=== PATIENT | female | born 1935 | race Caucasian/White ===

== ENCOUNTER 2016-12-19 02:17 | Inpatient (IN) ==
[2016-12-19 03:15] LABS: MANUAL DIFF NEEDED? NO
[2016-12-19] MEDS ORDERED: HUMULIN R IV ONE (03:21)
[2016-12-19] MEDS ORDERED: NS 1,000 ML IV ONE (03:21)
[2016-12-19 03:49] LABS: EOS# 0.06 X1000 (0.0-0.7); EOS% 3.4 % (0.0-10.0); HEMATOCRIT 23.8 % (37.0-47.0); HEMOGLOBIN 7.6 g/dL (12.0-16.0); LYMPH# 0.37 X1000 (1.2-3.4); LYMPH% 20.7 % (20.5-51.1); MCH 26.4 PG (27-31); MCHC 31.9 g/dL (33-37); MCV 82.6 FL (81-99); MONO# 0.03 X1000 (0.11-0.59); MONO% 1.7 % (1.7-9.3); MPV 13.8 FL (7.4-10.4); NEUT% 74.2 % (42.2-75.2); PLT 65 X1000 (130-400); RBC 2.88 XMIL (4.2-5.4)
[2016-12-19 04:24] LABS: URINE CULTURE NEEDED? NO; URINE SOURCE CATH
[2016-12-19 04:27] LABS: BILIRUBIN URINE SMALL (NEGATIVE); BLOOD URINE NEGATIVE (NEGATIVE); COLOR YELLOW; GLUCOSE URINE >1000 mg/dL (NEGATIVE); LEUKOCYTES URINE NEGATIVE (NEGATIVE); NITRITE URINE NEGATIVE (NEGATIVE); PROTEIN URINE 100 mg/dL (NEGATIVE); SP GRAVITY URINE 1.022; TURBIDITY URINE HAZY (CLEAR); UROBILINOGEN URINE 4 mg/dL (NORMAL)
[2016-12-19 04:28] LABS: URINE MICRO REVIEW NEEDED? YES
[2016-12-19 04:47] LABS: ALBUMIN 2.8 g/dL (3.5-5.0); CALCIUM 8.3 mg/dL (8.8-10.2); POTASSIUM 4.1 mmol/L (3.5-5.1); TOTAL BILIRUBIN 0.87 mg/dL (0.20-1.00); TOTAL PROTEIN 5.6 g/dL (6.3-8.3)
[2016-12-19 04:49] LABS: UR EPITHELIAL CELLS <10 /HPF (<10); URINE BACTERIA NEGATIVE /HPF; URINE RBC <10 /HPF (<10); URINE WBC <10 /HPF (<10)
[2016-12-19 05:26] LABS: URINE CASTS GRANULAR PRESENT; URINE CRYSTALS NONE SEEN; URINE SMALL ROUND CELLS NONE SEEN
[2016-12-19] MEDS ORDERED: NS 500 ML IV ONE (05:28)
--- NOTE | 2016-12-19 05:48 | PROVIDER DOCUMENTATION ---
This chart was entered by Rustam Bernstein Scribe, acting as scribe for Eliseo Duke MD. HPI-General Adult - General Chief Complaint: Weakness Stated Complaint: WEAKNESS, UNABLE TO CONTROL BOWELS Time Seen by Provider: 12/19/16 02:52 Source: patient Allergies/Adverse Reactions: Patient Allergies Allergy/AdvReac Type Severity Reaction Status Date / Time No Known Allergies Allergy Verified 12/19/16 02:42 Home Medications: Home Medication List Medication Instructions Recorded Confirmed Last Taken Type Aspirin [Aspirin EC] 81 mg PO DAILY 11/29/16 12/19/16 12/18/16 History Carvedilol [Coreg] 12.5 mg PO BID 11/29/16 12/19/16 12/18/16 History Gabapentin 100 mg PO BID 11/29/16 12/19/16 12/18/16 History Insulin Detemir [Levemir] 15 units SQ DAILY 11/29/16 12/19/16 12/18/16 History Losartan Potassium [Cozaar] 25 mg PO DAILY 11/29/16 12/19/16 12/18/16 History Omeprazole [Prilosec] 40 mg PO DAILY #30 capsule. 12/05/16 12/19/16 12/18/16 Rx Ondansetron HCl [Zofran] 4 mg PO 3-4XDAY PRN PRN #30 tablet 12/05/16 12/19/16 Rx Rivaroxaban [Xarelto] 20 mg PO BID #60 tablet 12/05/16 12/19/16 12/18/16 Rx Sennosides [Senna] 8.6 mg PO BID #60 tablet 12/05/16 12/19/16 12/18/16 Rx Dronabinol 1 cap PO DIRECTED 12/19/16 12/19/16 12/18/16 History Hydrocodone/APAP 7.5 mg/325 mg 1 tab PO Q4HR PRN 12/19/16 12/19/16 12/18/16 History [[place]-7.5] - History of Present Illness -Gen Adult Nature of Presenting Problems: Pt is a 81 yof who presents to ER via EMS with CC of generalized weakness. Pt was diagnosed with pancreatic cancer 1 month ago and recently finished her 3rd round of chemo and has become too weak to walk. Location of Pain/Injury: reports: none Pain Radiation: reports: no radiation Quality of Pain: reports: none Severity: reports: mild Onset/Duration: reports: unsure, just prior to arrival Timing: reports: still present Associated Symptoms: reports: fatigue, muscle aches, weakness, trouble walking. denies: anxiety, arm pain, back/neck pain, chest pain, constipation, cough, diaphoresis, diarrhea, dizziness, EENT symptoms, fever/chills, genitourinary problems, headaches, heartburn, joint pain, loss of appetite, malaise, sinus congestion/drainage, nausea, rash, seizure, shortness of breath, sensory/motor loss, pain with inspiration, swelling/mass in abdomen, syncope, vomiting Similar Symptoms Previously?: Yes Recently seen or treated by another doctor?: Yes Review of Systems - Adult - REVIEW OF SYSTEMS - ADULT Constitutional: reports: fatique, other (generalized weakness). denies: chills , fever, night sweats, weight gain, weight loss Eyes: reports: no symptoms reported Ears, Nose, Mouth & Throat: reports: no symptoms reported Cardiovascular: denies: chest pain, edema, heart murmur, irregular heart rate, orthopnea, palpitations, poor circulation, PND, syncope Respiratory: denies: chronic cough, cough, dyspnea on exertion, excessive sputum production, hemoptysis, pleurisy, shortness of breath, wheezing Gastrointestinal: reports: no symptoms reported Genitourinary: reports: no symptoms reported Musculoskeletal: reports: no symptoms reported Integumentary: reports: no symptoms reported Neurological: denies: ataxia, dizziness/vertigo, headache/migraines, loss of balance, numbness, paresthesia, seizure, slurred speech, syncope, tremors Psychiatric: reports: no symptoms reported Endocrine: reports: no symptoms reported Hematologic/Lymphatic: reports: no symptoms reported Allergic/Immunologic: reports: no symptoms reported All Other Systems: Reviewed and Negative Past History - Adult - PAST MEDICAL HISTORY-ADULT Review of Records: reports: Nursing Assessment Review, Medications Reviewed - IMMUNIZATION STATUS Childhood Immunizations: See Nurse Assessment Flu Vaccine: See Nurse Assessment Physical Exam-General - PHYSICAL EXAM-ADULT Initial Vital Signs Reviewed: Yes - CONSTITUTIONAL General Appearance: appears well, alert, mild distress, lethargic, slow to respond. negative: no apparent distress - HEAD, EARS, NOSE, MOUTH & THROAT HENMT: normocephalic/atraumatic, moist mucous membranes, normal ENT inspection, TMs normal, pharynx normal. negative: angioedema, dental decay, hearing deficit , pharyngeal erythema, tonsillar exudate, TM abnormal, TM obscurred by cerumen, frontal tenderness, maxillary tenderness - NECK Neck: non-tender, full range of motion, supple, normal inspection. negative: Brudzinski's sign, carotid bruit, C-spine tenderness, limited range of motion, lymphadenopathy, meningismus, trachial deviation, tender lateral, tender midline , thyromegaly - RESPIRATORY Respiratory: chest non-tender, lungs clear, normal breath sounds, no pleuratic chest pain, no respiratory distress, no accessory muscle use. negative: respiratory distress, decreased breath sounds, accessory muscle use, wheezing - CARDIOVASCULAR Cardiovascular: normal peripheral pulses, regular rate, rhythm. negative: bradycardia, tachycardia, irregularly irregular - GASTROINTESTINAL (ABDOMEN) Abdominal Exam: normal bowel sounds, non tender, soft, no organomegaly, no pulsatile mass. negative: abnormal bowel sounds, distended, guarding, tenderness - MUSCULOSKELETAL Back Exam: normal inspection, no CVA tenderness, no vertebral tenderness. negative: CVA tenderness, decreased range of motion, ecchymosis, muscle spasm, swelling, vertebral tenderness Extremity: normal range of motion, non-tender, normal gait, normal inspection, no pedal edema, no calf tenderness, normal capillary refill. negative: deformity, erythema, inflammation, swelling, tenderness - SKIN Integumentary: normal color, normal turgor, warm/dry. negative: abrasion(s), ecchymosis, erythema, swelling, tenderness, warm - NEUROLOGIC Neurologic: paraoptometric II-XII nml as tested, grossly normal, no motor/sensory deficits . negative: facial droop, focal weakness, motor weakness, sensory deficit - PSYCHIATRIC Psych/Mental Status: normal thought content, normal thought process, oriented x 3, depressed affect. negative: normal mood/affect Progress - PLAN OF CARE/RESULTS Progress/Plan/Lab Results: Vital Signs - 8 hr 12/19/16 02:24 Temperature 97.8 F Pulse Rate 79 Respiratory Rate 20 Blood Pressure 115/57 O2 Sat by Pulse Oximetry 94 L Orders Category Date Time Status CBC WITH ELECTRONIC DIFF [HEME] Stat Lab 12/19/16 02:53 Uncollected EKG [EKG] Stat Ther 12/19/16 02:17 Ordered Laboratory Tests 12/19/16 12/19/16 12/19/16 02:51 03:00 03:00 WBC 1.79 L RBC 2.88 L Hgb 7.6 L Hct 23.8 L MCV 82.6 MCH 26.4 L MCHC 31.9 L RDW Std Deviation 14.5 Plt Count 65 L MPV 13.8 H Immature Gran % (Auto) 0.0 Neut % (Auto) 74.2 Lymph % (Auto) 20.7 Cassia % (Auto) 1.7 Eos % (Auto) 3.4 Baso % (Auto) 0.0 Immature Gran # (Auto) 0.00 Neut # (Auto) 1.33 L Lymph # (Auto) 0.37 L Cassia # (Auto) 0.03 L Eos # (Auto) 0.06 Baso # (Auto) 0.00 Sodium 127 L Potassium 4.1 Chloride 92 L Carbon Dioxide 22 L Anion Gap 13 BUN 30 H Creatinine 1.3 H Estimated GFR/1.73 m2 40 BUN/Creatinine Ratio 23 Glucose 327 H POC Glucose 358 H D Calculated Osmolality 274 Calcium 8.3 L Total Bilirubin 0.87 AST 47 H Alkaline Phosphatase 239 H Total Protein 5.6 L Albumin 2.8 L Globulin 2.8 Albumin/Globulin Ratio 1.0 Amylase 29 Lipase 26 Urine Source Urine Color Urine Turbidity Urine pH Ur Specific [place] Urine Protein Ur Glucose (Stick) Ur Ketones (Stick) Urine Blood Urine Nitrite Urine Bilirubin Urobilinogen Dipstick Urine Leukocytes Urine WBC (Auto) Urine RBC (Auto) U Epithel Cells (Auto) Urine Bacteria (Auto) Urine Crystals Small Round Cells Urine Casts Urine Yeast-like Cells 12/19/16 03:10 WBC RBC Hgb Hct MCV MCH MCHC RDW Std Deviation Plt Count MPV Immature Gran % (Auto) Neut % (Auto) Lymph % (Auto) Cassia % (Auto) Eos % (Auto) Baso % (Auto) Immature Gran # (Auto) Neut # (Auto) Lymph # (Auto) Cassia # (Auto) Eos # (Auto) Baso # (Auto) Sodium Potassium Chloride Carbon Dioxide Anion Gap BUN Creatinine Estimated GFR/1.73 m2 BUN/Creatinine Ratio Glucose POC Glucose Calculated Osmolality Calcium Total Bilirubin AST Alkaline Phosphatase Total Protein Albumin Globulin Albumin/Globulin Ratio Amylase Lipase Urine Source CATH Urine Color YELLOW Urine Turbidity HAZY Urine pH 6.0 Ur Specific [place] 1.022 Urine Protein 100 A Ur Glucose (Stick) >1000 A Ur Ketones (Stick) NEGATIVE Urine Blood NEGATIVE Urine Nitrite NEGATIVE Urine Bilirubin SMALL A Urobilinogen Dipstick 4 A Urine Leukocytes NEGATIVE Urine WBC (Auto) <10 Urine RBC (Auto) <10 U Epithel Cells (Auto) <10 Urine Bacteria (Auto) NEGATIVE Urine Crystals NONE SEEN Small Round Cells NONE SEEN Urine Casts GRANULAR PRESENT Urine Yeast-like Cells NONE SEEN Result Diagrams: 12/19/16 03:00 12/19/16 03:00 Departure - Departure Time of Disposition Decision: 02:57 DIAGNOSIS: Pancreatic cancer Qualifiers: Pancreatic malignancy location: body of pancreas Qualified Code(s): C25.1 - Malignant neoplasm of body of pancreas Gastrointestinal bleed Qualifiers: GI bleed type/associated pathology: unspecified gastrointestinal hemorrhage type Qualified Code(s): K92.2 - Gastrointestinal hemorrhage, unspecified Disposition: ADMITTED INPATIENT 09 Certified Medical Emergency: Emergent Condition: Stable Additional Freetext Instructions: ED Follow Up Instructions: You have been treated by a care provider in the Emergency Department. These instructions are being provided to you so you can have an understanding of how to care for yourself upon discharge. Upon discharge from the Emergency Department, you are responsible for making arrangements for follow-up care by a physician of your choice. Take all prescribed medications as directed. Return to the Emergency Department immediately for any new or worsening symptoms. You may call the Physician Referral phone number at [phone] to obtain a list of Physicians who are taking new patients. This chart was documented by the indicated scribe, (Rustam Bernstein Scribe) and accurately reflects the services I performed and decisions made by me, Eliseo Duke MD, as attested by the provider's signature.
--- NOTE | 2016-12-19 06:01 | EKG Report ---
Test Performed on : 12/19/2016 02:27:39 AM Test Reason : weakness Blood Pressure : / mmHG Vent. Rate : 079 BPM Atrial Rate : 079 BPM P-R Int : 118 ms QRS Dur : 138 ms QT Int : 472 ms P-R-T Axes : 000 -15 074 degrees QTc Int : 541 ms Atrial-sensed ventricular-paced rhythm Abnormal ECG When compared with ECG of 29-OCT-2007 15:39, Vent. rate has decreased BY 13 BPM Unconfirmed Result
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
--- NOTE | 2016-12-19 07:21 | Diag Imaging Result Document ---
PROCEDURE NAME: ABDOMEN/PELVIS W/O CONTRAST - 12/19/2016 CT ABDOMEN AND PELVIS WITHOUT ORAL OR INTRAVENOUS CONTRAST: COMPARISON: Compared to 11/29/2016. FINDINGS: There is a calcified granuloma in the right lower lobe and calcified right hilar lymph nodes. There are many scattered hypodense hepatic lesions similar to the prior exam. The gallbladder has been removed. The spleen is not enlarged. There are scattered hepatic and splenic granuloma. Mild inflammation about the pancreas. No mass identified on this noncontrasted exam. No renal stones. No hydronephrosis. Moderate atherosclerosis. No bowel obstruction. No inflammation about the cecum. There is wall thickening about the distal descending and sigmoid colon. The urinary bladder is moderately distended. The uterus has been removed. No pelvic mass. No free fluid. IMPRESSION: 1. Interval development of colitis involving the descending and sigmoid colon. 2. Hepatic metastases. 3. Mild inflammation about the pancreas. 4. Cholecystectomy. 5. Hysterectomy. [facility]
[2016-12-19] MEDS ORDERED: ZOFRAN IV PRN (07:22)
--- NOTE | 2016-12-19 08:14 | Diag Imaging Result Document ---
PROCEDURE NAME: ABDOMEN FLAT/UPRIGHT - 12/19/2016 PORTABLE ABDOMEN, TWO VIEWS: FINDINGS: The lung bases are clear. No free air beneath the diaphragm. There are surgical clips in the right upper quadrant from a cholecystectomy. There has been prior surgery to the lower lumbar spine. No bowel obstruction. IMPRESSION: No definite acute abnormality except for mild constipation.
[2016-12-19] MEDS ORDERED: XARELTO PO SCH (09:00)
[2016-12-19] MEDS ORDERED: PRILOSEC PO SCH (09:00)
[2016-12-19] MEDS: SENOKOT PO SCH ×3 (09:25→20:46)
[2016-12-19] MEDS: SODIUM CHLORIDE 0.9% INJ SCH (09:25)
[2016-12-19] MEDS: PROTONIX IV SCH (09:25)
[2016-12-19] MEDS: NEURONTIN PO SCH ×2 (09:25→20:46)
[2016-12-19] MEDS: FLAGYL 500 MG/NS 500 MG/100 ML IVPB IV SCH ×2 (09:26→17:01)
[2016-12-19] MEDS: HUMALOG SUBQ SCH ×4 (09:26→20:45)
[2016-12-19] MEDS: NS 1,000 ML IV SCH ×2 (09:26→18:46)
[2016-12-19] MEDS: MARINOL PO SCH ×3 (11:52→20:46)
--- NOTE | 2016-12-19 19:26 | PROGRESS NOTE ---
DATE: 12/20/2016 SUBJECTIVE: Interval history was reviewed. Ever since patient discharged from the previous admission, the patient has been under the care of Dr. Mcgowan. The patient had chemotherapy x2. Apparently came in with explosive diarrhea, fatigue, weakness, abdominal pain. Past medical history, surgical history, medicines were reviewed. REVIEW OF SYSTEMS: HEENT: No headache. No vision problem. No earache. No sore throat. Neck: No goiter. No lymphadenopathy. No bruit. Cardiopulmonary: No chest pain, shortness of breath, PND, orthopnea. GI: Lower abdominal pain, diarrhea and slight upper abdominal discomfort. No swelling of legs. No joint pain. Neurologic: No obvious weakness. PHYSICAL EXAMINATION: Vital Signs: Afebrile, pulse is 86, blood pressure is 103/45. 95% room air. HEENT: Atraumatic, normocephalic. Pupils equal, reactive to light. TMs are normal. Nose and throat within normal limits. Neck: Supple. No lymphadenopathy. No goiter. Chest: Clear to auscultation. Heart: Sounds are regular. Abdomen: Belly is soft. No signs of peritonitis noted. Extremities: No peripheral edema, cyanosis. No obvious neurological deficits. INVESTIGATIONS: White cell count 1.7, hematocrit 23, platelets 65,000. SMA7: Sodium 127, potassium 4.1, BUN 30, creatinine 1.3, glucose 327, elevated LFTs. Urinalysis is clear. CT scan of the abdomen and pelvis: Findings discussed interval development of colitis of the descending and sigmoid colon. Mild inflammation over the pancreas. Cholecystectomy, hysterectomy, hepatic metastasis worsening. ASSESSMENT AND PLAN: 1. Pancytopenia due to recent chemotherapy. 2. Hematological support for anemia, transfusion of 2 units of packed red blood cells. 3. Leukopenia. Follow up on ANC. Discussed with Dr. Mcgowan. 4. Deep venous thrombosis with pulmonary embolism. Continue on Xarelto 20 mg daily. 5. Diarrhea with colitis. Rule out C. difficile. Follow up on stool studies. Empirical treatment with IV Flagyl. 6. Dehydration. IV fluids. 7. Stage IV pancreatic cancer with hepatic metastases, continue on hydromorphone. 8. Status post Port-A-Cath for IV access. 9. Discussed with Dr. Mcogwan. TOTAL DOCUMENTATION TIME: 35 minutes. cc: Gregory Waite MD
[2016-12-19] MEDS ORDERED: AMBIEN PO PRN (19:37)
[2016-12-20] MEDS: NS 1,000 ML IV SCH ×2 (02:01→14:04)
[2016-12-20] MEDS: FLAGYL 500 MG/NS 500 MG/100 ML IVPB IV SCH ×3 (02:01→16:47)
[2016-12-20] MEDS: PERCOCET-5 PO PRN ×3 (05:00→19:06)
[2016-12-20] MEDS: HUMALOG SUBQ SCH ×4 (07:02→20:53)
[2016-12-20 07:42] LABS: EOS# 0.05 X1000 (0.0-0.7); EOS% 4.9 % (0.0-10.0); HEMATOCRIT 26.8 % (37.0-47.0); HEMOGLOBIN 8.7 g/dL (12.0-16.0); LYMPH# 0.38 X1000 (1.2-3.4); LYMPH% 37.3 % (20.5-51.1); MCHC 32.5 g/dL (33-37); MCV 83.2 FL (81-99); MONO# 0.02 X1000 (0.11-0.59); MPV 13.2 FL (7.4-10.4); NEUT% 54.8 % (42.2-75.2); PLT 45 X1000 (130-400); RBC 3.22 XMIL (4.2-5.4)
[2016-12-20 07:43] LABS: POTASSIUM 3.6 mmol/L (3.5-5.1)
[2016-12-20 08:06] LABS: MANUAL DIFF NEEDED? YES
[2016-12-20 08:10] LABS: EOS 4 % (1-10); LYMPHS 30 % (21-51); MONO 2 % (1-9)
--- NOTE | 2016-12-20 08:32 | CONSULTATION ---
DATE OF CONSULTATION: 12/19/2016 ADMITTING PHYSICIAN: Dr. Peralta. REQUESTING PHYSICIAN: Dr. Peralta. We appreciate this consult. CHIEF COMPLAINT: Weakness. HISTORY OF PRESENT ILLNESS: Ms. Ge is a 81-year-old female known to us with a history of stage IV pancreatic cancer, who was brought to [facility] Emergency Department secondary to generalized weakness. The patient reports that while going to the bathroom she felt that both lower extremities were extremely weak so she lowered herself to the ground. Her reported that he could not help her up and decided to call EMS. The patient did report that prior to this episode she had some significant constipation and took a medication that was given to her at discharge from the hospital. She reports that she had improvement of symptoms after that time but did have abdominal pain. Additionally, the patient reports that she has significant pain that is not controlled by her current pain regimen. PAST MEDICAL HISTORY: 1. Stage IV pancreatic cancer. 2. Cervical spondylosis. 3. Chronic systolic heart failure. 4. Uncontrolled diabetes mellitus type 2. 5. Hyperlipidemia. 6. Osteoporosis. 7. Left bundle branch block. PAST SURGICAL HISTORY: 1. Port placement this month. 2. Permanent pacemaker placement. 3. Cholecystectomy. 4. C-spine fusion. 5. Hysterectomy. 6. Back surgery. FAMILY HISTORY: Negative for any hematologic or oncologic problem. SOCIAL HISTORY: The patient does not use tobacco, alcohol, or illicit drugs. ALLERGIES: The patient is allergic to Glucophage, Victoza, and Demerol. MEDICATIONS ON ADMISSION: Review of admission medications is currently pending. REVIEW OF SYSTEMS: A 14-point review of systems was obtained and is negative except for as mentioned in the HPI. PHYSICAL EXAMINATION: General: Ms. Ge is a very pleasant, 81-year-old female, well developed, well nourished. She is lying supine in bed. Somewhat weak but in no immediate distress. Vital Signs: Temperature 98.4 degrees, blood pressure 91/39, heart rate 79, respirations are 17, O2 saturation is 97% on room air. HEENT: Normocephalic, atraumatic. Mucous membranes are pale and moist. Sclerae anicteric. Extraocular movements intact. Neck: Supple. Lungs: Clear to auscultation bilaterally. Chest expansion is equal bilaterally. CV: S1, S2 is heard without murmur, rub, or gallop. Abdomen: Soft, nondistended. Minimally tender in the left upper quadrant. Bowel sounds are positive in all quadrants. No rebound or guarding noted. Extremities: Without clubbing, cyanosis, or edema. Dermatologic: No rashes, bruises or lesions. Neurologic: The patient is awake, alert, oriented x3. She has no focal deficit at this time. LABORATORY DATA: Bilirubin 0.87, AST 47, alkaline phosphatase 239, ALT is 40. Hemoglobin 7.6, hematocrit 23.8, white blood cell count 1.79, platelets 65,000. ANC is 1.33. Sodium 127, potassium 4.1, chloride 92, CO2 is 22, BUN 30, creatinine 1.3, glucose 327, calcium is 8.3, magnesium 2.4. Fecal occult blood test is positive. IMAGING STUDIES: CT of the abdomen and pelvis reveals colitis of the descending and sigmoid colon with hepatic metastasis, as well as pancreatic inflammation. Abdominal x-ray reveals mild constipation. ASSESSMENT AND PLAN: 1. Stage IV pancreatic cancer status post cycle 1, day 8 of Abraxane and Gemzar on 12/15/2016. Holding for now. Next dose is scheduled for December 22. 2. Generalized weakness which persists at this time. 3. Diabetes mellitus, uncontrolled with a glucose of 327. We agree with sliding scale insulin as ordered. 4. Anemia, likely chemotherapy related. We agree with transfusion of packed red blood cells. Will monitor CBC. 5. Acute kidney insufficiency. We agree with hydration. Creatinine is currently stable at 1.3. 6. Hyponatremia with sodium of 127. We agree with normal saline IV fluids. 7. Chronic systolic heart failure which is currently stable. 8. We will follow along with you and make further recommendations pending outcomes. The above reflects the history, exam, assessment, and plan of Dr. Mcgowan. Dictated by FARSHAD Zurita for Claudio Mcgowan MD cc: FARSHAD Zurita MD Jagan Reddy, MD
[2016-12-20] MEDS: SENOKOT PO SCH ×2 (09:39→20:53)
[2016-12-20] MEDS: NEURONTIN PO SCH ×2 (09:39→20:52)
[2016-12-20] MEDS: MARINOL PO SCH ×2 (09:39→20:52)
[2016-12-20] MEDS: XARELTO PO SCH (09:40)
[2016-12-20] MEDS: PROTONIX IV SCH (09:41)
[2016-12-20] MEDS: SODIUM CHLORIDE 0.9% INJ SCH (09:41)
[2016-12-20] MEDS: GRANIX SUBQ SCH (12:58)
--- NOTE | 2016-12-20 19:17 | PROGRESS NOTE ---
DATE: 12/20/2016 SUBJECTIVE: The patient was seen by Dr. Mcgowan and is status post 2 units of packed RBCs. The patient complains of pain. Also decreased diarrhea. REVIEW OF SYSTEMS: None reported. PHYSICAL EXAMINATION: Vital Signs: Stable. HEENT: Exam within normal limits. Neck: Supple. Port on the right side. Chest: Clear. Heart: Sounds are regular. Abdomen: Belly is soft, nontender. Good bowel sounds. No masses palpable. Extremities: No peripheral edema, cyanosis, clubbing. INVESTIGATIONS: CBC white cell count 1.0. Hematocrit 26, platelets 45,000. SMA 7 sodium 134, potassium 3.6, chloride 102, BUN 23, creatinine 1.1, glucose 8.0. LFTs were high. Stool occult positive. C. difficile was negative. ASSESSMENT AND PLAN: 1. Pancytopenia due to chemotherapy. Continue Granix 480 mcg subcu daily. 2. Anemia due to chemotherapy and heme-positive stools. Continue transfusion. Keep the hematocrit around 30. We will transfuse 1 unit of packed RBCs. 3. Colitis. Continue on IV Flagyl. 4. Deep vein thrombosis with pulmonary embolism on Xarelto 20 mg daily. 5. Gastrointestinal prophylaxis with IV Protonix. 6. End-stage terminal pancreatic cancer. Prognosis is grim. Advanced directives discussed with the family members. TIME SPENT: 35 minutes. cc: Gregory Waite MD
[2016-12-21] MEDS ORDERED: HEPARIN ONE (00:16)
[2016-12-21] MEDS: NS 1,000 ML IV SCH ×2 (00:19→10:07)
[2016-12-21] MEDS: FLAGYL 500 MG/NS 500 MG/100 ML IVPB IV SCH ×3 (00:19→17:10)
[2016-12-21] MEDS: HUMALOG SUBQ SCH ×4 (06:54→21:47)
[2016-12-21 07:01] LABS: AGAP 13; BUN 12 mg/dL (8-22); CALCIUM 7.9 mg/dL (8.8-10.2); CHLORIDE 101 mmol/L (98-107); COSMO 271; POTASSIUM 3.7 mmol/L (3.5-5.1); SODIUM 134 mmol/L (136-145); TCO2 20 mmol/L (25-35)
[2016-12-21 07:10] LABS: BASO% 0.3 % (0.0-0.8); EOS# 0.05 X1000 (0.0-0.7); EOS% 1.7 % (0.0-10.0); HEMATOCRIT 35.1 % (37.0-47.0); HEMOGLOBIN 11.8 g/dL (12.0-16.0); IMM GRAN# 0.05 X1000 (0.0-0.04); IMM GRAN% 1.7 % (0.0-0.5); LYMPH# 0.55 X1000 (1.2-3.4); LYMPH% 18.2 % (20.5-51.1); MANUAL DIFF NEEDED? YES; MCH 27.9 PG (27-31); MCHC 33.6 g/dL (33-37); MONO# 0.12 X1000 (0.11-0.59); NEUT% 74.1 % (42.2-75.2); PLT 24 X1000 (130-400); RBC 4.23 XMIL (4.2-5.4)
[2016-12-21 07:33] LABS: BANDS 4 % (0-1); LARGE PLATELETS 1+; LYMPHS 16 % (21-51); MONO 4 % (1-9)
--- NOTE | 2016-12-21 09:13 | PROGRESS NOTE ---
DATE: 12/21/2016 SUBJECTIVE: The patient complains of abdominal pain, diarrhea. Interval history: The patient did receive 3 units of packed RBCs. Review of systems: Abdominal pain, diarrhea. The rest of the review of systems: None reported. PHYSICAL EXAMINATION: Vital signs are stable. HEENT: Exam is within normal limits. Neck is supple. No lymphadenopathy. Port on the right side. Chest is clear. Heart sounds are regular. Belly is soft. No signs of peritonitis noted. Neurologic: No obvious deficits. Stool was positive for blood. INVESTIGATIONS: CBC: White cell count 3.0, hematocrit 35, platelets 24,000. SMA-7: Sodium 134, potassium 3.7, chloride 100. BUN 12, creatinine 0.8. Calcium 7.9. Stool cultures were negative. ASSESSMENT AND PLAN: 1. Stage IV pancreatic cancer. On hold chemotherapy. 2. Colitis. Ruled out Clostridium difficile and continue on IV Flagyl. 3. Pancytopenia slowly improving. 4. Afebrile neutropenia, improving on Granix. 5. Deep venous thrombosis, on Xarelto. 6. Thrombocytopenia. We will closely monitor with Dr. Mcgowan. 7. Anemia is improving. Continues to follow up. Level of documentation time: 25 minutes. cc: Gregory Waite MD
[2016-12-21] MEDS: XARELTO PO SCH (10:05)
[2016-12-21] MEDS: SENOKOT PO SCH ×2 (10:05→21:47)
[2016-12-21] MEDS: GRANIX SUBQ SCH (10:05)
[2016-12-21] MEDS: PROTONIX IV SCH (10:06)
[2016-12-21] MEDS: SODIUM CHLORIDE 0.9% INJ SCH (10:06)
[2016-12-21] MEDS: NEURONTIN PO SCH ×2 (10:06→21:45)
[2016-12-21] MEDS: MARINOL PO SCH ×2 (10:10→21:45)
[2016-12-21] MEDS: DILAUDID IV PRN ×2 (10:14→21:45)
[2016-12-21] MEDS: PERCOCET-5 PO PRN (13:07)
[2016-12-21 15:34] LABS: BASO% 0.2 % (0.0-0.8); EOS# 0.04 X1000 (0.0-0.7); EOS% 0.7 % (0.0-10.0); HEMATOCRIT 29.6 % (37.0-47.0); HEMOGLOBIN 9.9 g/dL (12.0-16.0); IMM GRAN# 0.57 X1000 (0.0-0.04); IMM GRAN% 10.1 % (0.0-0.5); LYMPH# 0.81 X1000 (1.2-3.4); LYMPH% 14.4 % (20.5-51.1); MANUAL DIFF NEEDED? YES; MCHC 33.4 g/dL (33-37); MCV 83.9 FL (81-99); MONO# 0.34 X1000 (0.11-0.59); MPV 12.2 FL (7.4-10.4); NEUT% 68.6 % (42.2-75.2); RBC 3.53 XMIL (4.2-5.4)
[2016-12-21 15:36] LABS: PLT 23 X1000 (130-400)
[2016-12-21 15:40] LABS: BANDS 6 % (0-1); LYMPHS 28 % (21-51); MONO 4 % (1-9)
[2016-12-21 15:47] LABS: LARGE PLATELETS OCCASIONAL
[2016-12-22] MEDS: NS 1,000 ML IV SCH ×3 (00:12→21:50)
[2016-12-22] MEDS: FLAGYL 500 MG/NS 500 MG/100 ML IVPB IV SCH ×3 (00:12→18:02)
[2016-12-22] MEDS: DILAUDID IV PRN (05:19)
[2016-12-22] MEDS: HUMALOG SUBQ SCH ×4 (06:36→21:51)
[2016-12-22 06:57] LABS: BASO% 0.6 % (0.0-0.8); EOS# 0.08 X1000 (0.0-0.7); HEMATOCRIT 30.5 % (37.0-47.0); IMM GRAN# 1.43 X1000 (0.0-0.04); LYMPH# 0.95 X1000 (1.2-3.4); MANUAL DIFF NEEDED? YES; MCH 27.5 PG (27-31); MCHC 32.8 g/dL (33-37); MCV 83.8 FL (81-99); MONO% 11.3 % (1.7-9.3); MPV 9.8 FL (7.4-10.4); NEUT% 57.1 % (42.2-75.2); RBC 3.64 XMIL (4.2-5.4)
[2016-12-22 06:59] LABS: PLT 27 X1000 (130-400)
[2016-12-22 07:15] LABS: BANDS 10 % (0-1); EOS 2 % (1-10); LYMPHS 10 % (21-51); MONO 14 % (1-9); NRBC 1 % (0-0)
[2016-12-22] MEDS: XARELTO PO SCH (10:06)
[2016-12-22] MEDS: SENOKOT PO SCH ×2 (10:06→21:51)
[2016-12-22] MEDS: GRANIX SUBQ SCH (10:06)
[2016-12-22] MEDS: MARINOL PO SCH ×2 (10:06→21:50)
[2016-12-22] MEDS: NEURONTIN PO SCH ×2 (10:06→21:51)
[2016-12-22] MEDS: PROTONIX IV SCH (10:06)
[2016-12-22] MEDS: SODIUM CHLORIDE 0.9% INJ SCH (10:06)
[2016-12-22] MEDS: PERCOCET-5 PO PRN (18:02)
[2016-12-22 20:20] LABS: EOS% 0.8 % (0.0-10.0); HEMATOCRIT 29.6 % (37.0-47.0); HEMOGLOBIN 9.9 g/dL (12.0-16.0); IMM GRAN# 1.08 X1000 (0.0-0.04); IMM GRAN% 9.1 % (0.0-0.5); LYMPH# 1.24 X1000 (1.2-3.4); LYMPH% 10.5 % (20.5-51.1); MANUAL DIFF NEEDED? YES; MCH 27.8 PG (27-31); MCHC 33.4 g/dL (33-37); MCV 83.1 FL (81-99); MONO# 1.52 X1000 (0.11-0.59); MONO% 12.8 % (1.7-9.3); MPV 11.8 FL (7.4-10.4); NEUT% 65.8 % (42.2-75.2); PLT 64 X1000 (130-400); RBC 3.56 XMIL (4.2-5.4)
--- NOTE | 2016-12-22 20:33 | PROGRESS NOTE ---
DATE: 12/22/2016 SUBJECTIVE: The patient is feeling a little better. She did receive 1 unit of platelets yesterday. The patient continues to have diarrhea with bloody stools. REVIEW OF SYSTEMS: None reported. No headaches. No cardiopulmonary symptoms like shortness of breath, PND, orthopnea. Abdominal pain slightly improved. PHYSICAL EXAMINATION: Vital Signs: Stable. HEENT: Within normal limits. Neck: Supple. No lymphadenopathy. No goiter. Chest: Clear to auscultation. Heart: Sounds are regular. Abdomen: Belly is soft, nontender. Good bowel sounds. No masses palpable. Extremities: No peripheral edema, cyanosis, clubbing. Neurologic: Nonfocal. INVESTIGATIONS: CBC: White cell count 7.9, hematocrit 30, platelets 27,000. Blood sugars 216. ASSESSMENT AND PLAN: 1. Pancytopenia, slowly improving. 2. Thrombocytopenia. In light of bleeding, transfuse 1 unit of platelets. 3. Significant bleeding in the stool. Hold the Xarelto. Gastroenterology consult. 4. Neutropenia, is resolving. 5. Colitis. On IV Flagyl. 6. Stage IV pancreatic cancer. Currently on hold for chemotherapy. 7. Abdominal pain control with hydromorphone 1 mg q.3 hours. 8. Disposition: Family wants hospital bed. workforce services representative consult was obtained. LEVEL OF CARE: Documentation 25 minutes. cc: Gregory Waite MD
[2016-12-22 20:54] LABS: BANDS 1 % (0-1); LYMPHS 14 % (21-51); MONO 12 % (1-9)
[2016-12-23] MEDS: FLAGYL 500 MG/NS 500 MG/100 ML IVPB IV SCH ×3 (01:26→16:40)
[2016-12-23] MEDS: NS 1,000 ML IV SCH ×4 (01:27→22:26)
[2016-12-23] MEDS: DILAUDID IV PRN ×2 (04:42→19:34)
[2016-12-23 05:50] LABS: BASO% 1.8 % (0.0-0.8); EOS# 0.15 X1000 (0.0-0.7); HEMATOCRIT 29.2 % (37.0-47.0); HEMOGLOBIN 9.6 g/dL (12.0-16.0); IMM GRAN# 1.39 X1000 (0.0-0.04); IMM GRAN% 9.5 % (0.0-0.5); LYMPH# 1.65 X1000 (1.2-3.4); LYMPH% 11.3 % (20.5-51.1); MANUAL DIFF NEEDED? YES; MCH 27.4 PG (27-31); MCHC 32.9 g/dL (33-37); MCV 83.4 FL (81-99); MONO# 2.28 X1000 (0.11-0.59); MONO% 15.6 % (1.7-9.3); MPV 11.6 FL (7.4-10.4); NEUT% 60.8 % (42.2-75.2); PLT 67 X1000 (130-400)
[2016-12-23] MEDS: HUMALOG SUBQ SCH ×4 (06:33→20:40)
[2016-12-23 07:11] LABS: BANDS 8 % (0-1); LYMPHS 14 % (21-51); MONO 16 % (1-9); NRBC 2 % (0-0)
[2016-12-23] MEDS: SENOKOT PO SCH ×3 (10:04→20:42)
[2016-12-23] MEDS: MARINOL PO SCH ×2 (10:04→20:41)
[2016-12-23] MEDS: PROTONIX IV SCH (10:04)
[2016-12-23] MEDS: NEURONTIN PO SCH ×2 (10:04→20:41)
[2016-12-23] MEDS: SODIUM CHLORIDE 0.9% INJ SCH (10:05)
--- NOTE | 2016-12-23 12:00 | PROGRESS NOTE ---
DATE: 12/23/2016 Ms. Tara Ge has stage IV pancreatic cancer. She had some colitis. She has pancytopenia, which is improving. Hemoglobin was 9.6, hematocrit 29.2, white count is 14.66. Her stool cultures were negative. Overall condition is stable. She appears slightly depressed. -2 cc: MD Gregory Banegas MD
[2016-12-24] MEDS: NS 1,000 ML IV SCH ×3 (01:37→22:40)
[2016-12-24] MEDS: FLAGYL 500 MG/NS 500 MG/100 ML IVPB IV SCH ×3 (01:37→17:17)
[2016-12-24] MEDS: HUMALOG SUBQ SCH ×4 (06:27→22:24)
[2016-12-24] MEDS: NEURONTIN PO SCH ×2 (08:30→20:00)
[2016-12-24] MEDS: SODIUM CHLORIDE 0.9% INJ SCH (08:30)
[2016-12-24] MEDS: SENOKOT PO SCH ×2 (08:30→20:01)
[2016-12-24] MEDS: PROTONIX IV SCH (08:30)
[2016-12-24] MEDS: MARINOL PO SCH ×2 (08:55→20:00)
[2016-12-24] MEDS: DILAUDID IV PRN ×2 (11:37→17:15)
--- NOTE | 2016-12-24 11:45 | PROGRESS NOTE ---
DATE: 12/24/2016 SUBJECTIVE: The patient is just uncomfortable. She has some generalized pain. OBJECTIVE: Blood pressure is 149/66, respirations 18, pulse 94, temperature 98.8 degrees Fahrenheit. HEENT: She is normocephalic. EOMs intact. PERRLA. Throat clear. Lungs: Clear to auscultation and percussion without rhonchi, rales, or wheezes. Heart: Regular rate rhythm without murmurs, gallops, or friction rubs. Abdomen: Soft with no tenderness at this time. Neurological: Intact grossly. ASSESSMENT: Patient has stage IV pancreatic cancer with colitis and pancytopenia which is improving. PLAN: Continue support. cc: MD Gregory Rothman Jr, MD
[2016-12-25] MEDS: FLAGYL 500 MG/NS 500 MG/100 ML IVPB IV SCH ×4 (02:01→23:59)
[2016-12-25] MEDS: HUMALOG SUBQ SCH ×4 (06:38→21:30)
[2016-12-25] MEDS: NS 1,000 ML IV SCH ×3 (06:39→23:59)
[2016-12-25 07:22] LABS: AGAP 12; BUN 5 mg/dL (8-22); CHLORIDE 102 mmol/L (98-107); COSMO 277; POTASSIUM 2.6 mmol/L (3.5-5.1); SODIUM 138 mmol/L (136-145); TCO2 24 mmol/L (25-35)
[2016-12-25 07:45] LABS: HEMATOCRIT 30.6 % (37.0-47.0); HEMOGLOBIN 10.4 g/dL (12.0-16.0); MANUAL DIFF NEEDED? YES; MCH 28.2 PG (27-31); MCV 82.9 FL (81-99); MPV 11.6 FL (7.4-10.4); PLT 59 X1000 (130-400); RBC 3.69 XMIL (4.2-5.4)
[2016-12-25 08:02] LABS: BANDS 14 % (0-1); LYMPHS 8 % (21-51); MONO 10 % (1-9); NRBC 1 % (0-0)
[2016-12-25 08:03] LABS: HYPOCHROM 1+
[2016-12-25] MEDS: SODIUM CHLORIDE 0.9% INJ SCH (09:13)
[2016-12-25] MEDS: PROTONIX IV SCH (09:13)
[2016-12-25] MEDS: MARINOL PO SCH ×2 (09:13→20:32)
[2016-12-25] MEDS: NEURONTIN PO SCH ×2 (09:13→20:32)
[2016-12-25] MEDS: SENOKOT PO SCH ×2 (09:14→21:30)
--- NOTE | 2016-12-25 13:18 | PROGRESS NOTE ---
DATE: 12/25/2016 SUBJECTIVE: The patient says she does not feel real well. She feels tired but she is not hurting. OBJECTIVE: Vital Signs: Blood pressure is 150/49, respirations 14, pulse 101, temperature 98.1 degrees Fahrenheit. HEENT: She is normocephalic. PERRLA. Throat clear. Lungs: Clear to auscultation and percussion without rhonchi, rales, or wheezes. Heart: Regular rate and rhythm without murmurs, gallops, or friction rubs. Abdomen: Fairly soft and perhaps just a little distended. No pain with it at this time. ASSESSMENT: 1. Stage IV pancreatic cancer. 2. Colitis, improving. 3. Pancytopenia, improved. PLAN: Continue support. cc: MD Gregory Rothman Jr, MD
[2016-12-25] MEDS: DILAUDID IV PRN (13:45)
[2016-12-26] MEDS: DILAUDID IV PRN ×3 (01:23→21:32)
[2016-12-26] MEDS: NS 1,000 ML IV SCH ×2 (05:49→08:53)
[2016-12-26 06:21] LABS: BASO% 2.7 % (0.0-0.8); EOS# 0.16 X1000 (0.0-0.7); EOS% 0.7 % (0.0-10.0); HEMATOCRIT 29.5 % (37.0-47.0); HEMOGLOBIN 9.8 g/dL (12.0-16.0); IMM GRAN% 15.7 % (0.0-0.5); LYMPH# 2.98 X1000 (1.2-3.4); MANUAL DIFF NEEDED? YES; MCHC 33.2 g/dL (33-37); MCV 84.3 FL (81-99); MONO# 3.62 X1000 (0.11-0.59); MONO% 15.8 % (1.7-9.3); MPV 12.5 FL (7.4-10.4); NEUT% 52.1 % (42.2-75.2); PLT 68 X1000 (130-400)
[2016-12-26 06:23] LABS: AGAP 14; BUN 5 mg/dL (8-22); CALCIUM 8.1 mg/dL (8.8-10.2); CHLORIDE 102 mmol/L (98-107); COSMO 280; POTASSIUM 2.6 mmol/L (3.5-5.1); SODIUM 140 mmol/L (136-145); TCO2 24 mmol/L (25-35)
[2016-12-26] MEDS: HUMALOG SUBQ SCH ×4 (06:25→21:35)
[2016-12-26 06:51] LABS: BANDS 12 % (0-1); HYPOCHROM 1+; LYMPHS 8 % (21-51); MONO 14 % (1-9); NRBC 2 % (0-0); POLYCHROM 1+
[2016-12-26] MEDS: SENOKOT PO SCH ×2 (08:59→20:44)
[2016-12-26] MEDS: FLAGYL 500 MG/NS 500 MG/100 ML IVPB IV SCH ×2 (08:59→20:45)
[2016-12-26] MEDS: NEURONTIN PO SCH ×2 (08:59→20:44)
[2016-12-26] MEDS: MARINOL PO SCH ×2 (08:59→20:47)
[2016-12-26] MEDS: PROTONIX IV SCH (08:59)
[2016-12-26] MEDS: POTASSIUM CHLORIDE 60 MEQ in NS 500 ML IV SCH ×2 (10:52→18:01)
[2016-12-26] MEDS: PERCOCET-5 PO PRN (23:35)
[2016-12-27] MEDS: DILAUDID IV PRN (00:32)
--- NOTE | 2016-12-27 00:48 | PROGRESS NOTE ---
DATE: 12/26/2016 SUBJECTIVE: Interval history was reviewed over the weekend. The patient is refusing for further testing. No signs of active bleeding in the bowels. No diarrhea. No constipation. Pain is adequately controlled. She wants to go home. REVIEW OF SYSTEMS: None reported. PAST MEDICAL HISTORY/PAST SURGICAL/MEDICINES: Were reviewed. PHYSICAL EXAMINATION: Vital Signs: Stable, on oxygen 2 L, not in respiratory distress. HEENT: Within normal limits. Neck: Supple. No lymphadenopathy. No goiter. Chest: Clear to auscultation. Heart: Sounds are regular. Abdomen: Belly is soft, nontender. Good bowel sounds. No masses palpable. No peripheral edema, cyanosis or clubbing. Neurologic: No obvious deficits. INVESTIGATIONS: White cell count 22, hematocrit 29, platelets 68,000. SMA 7 is normal, except potassium 2.6, glucose 208. Stool cultures were negative. ASSESSMENT AND PLAN: 1. Pancytopenia is improving. 2. Colitis, on IV Flagyl. 3. GI bleeding. Patient refusing further GI workup. 4. Hypokalemia, replace the potassium. 5. Advanced directives discussed, reported DNR. DISPOSITION: We will arrange a hospital bed. If she is stable, we will discharge her soon. Level of documentation 35 minutes. cc: Gregory Waite MD
[2016-12-27] MEDS: NS 1,000 ML IV SCH ×2 (01:06→09:12)
[2016-12-27] MEDS: FLAGYL 500 MG/NS 500 MG/100 ML IVPB IV SCH (03:45)
[2016-12-27] MEDS: HUMALOG SUBQ SCH (06:11)
[2016-12-27 06:14] LABS: BASO% 2.1 % (0.0-0.8); EOS# 0.22 X1000 (0.0-0.7); EOS% 1.2 % (0.0-10.0); HEMATOCRIT 30.4 % (37.0-47.0); HEMOGLOBIN 9.9 g/dL (12.0-16.0); IMM GRAN# 3.25 X1000 (0.0-0.04); IMM GRAN% 17.4 % (0.0-0.5); LYMPH# 3.13 X1000 (1.2-3.4); LYMPH% 16.8 % (20.5-51.1); MANUAL DIFF NEEDED? YES; MCHC 32.6 g/dL (33-37); MCV 85.9 FL (81-99); MONO% 13.9 % (1.7-9.3); NEUT% 48.6 % (42.2-75.2); PLT 70 X1000 (130-400); RBC 3.54 XMIL (4.2-5.4)
[2016-12-27 06:36] LABS: AGAP 10; BUN 5 mg/dL (8-22); CALCIUM 7.9 mg/dL (8.8-10.2); CHLORIDE 105 mmol/L (98-107); COSMO 281; POTASSIUM 3.4 mmol/L (3.5-5.1); SODIUM 140 mmol/L (136-145); TCO2 25 mmol/L (25-35)
[2016-12-27 07:05] LABS: BANDS 8 % (0-1); HYPOCHROM 1+; LYMPHS 15 % (21-51); MONO 6 % (1-9)
[2016-12-27 07:58] VITALS: BP 143/55
[2016-12-27] MEDS: PROTONIX IV SCH (09:12)
[2016-12-27] MEDS: MARINOL PO SCH (09:12)
[2016-12-27] MEDS: SENOKOT PO SCH (09:12)
[2016-12-27] MEDS: NEURONTIN PO SCH (09:12)
[2016-12-27] MEDS ORDERED: HEPARIN ONE (11:22)
--- NOTE | 2016-12-27 22:42 | DISCHARGE SUMMARY ---
ADMISSION DATE: 12/19/2016 DISCHARGE DATE: 12/27/2016 DISCHARGING DIAGNOSIS: Abdominal pain due to colitis, associated with gastrointestinal bleeding. SECONDARY DIAGNOSIS: Stage IV pancreatic cancer. OTHER DIAGNOSES: 1. Chronic left bundle branch block. 2. Cervical spondylosis. 3. Chronic systolic heart failure. 4. Type 2 diabetes. 5. Hyperlipidemia. 6. Osteoporosis. 7. Left leg deep venous thrombosis with pulmonary embolism. 8. Pancytopenia. 9. Electrolyte abnormalities. 10. Hypokalemia. CONSULTANTS: Dr. Claudio Mcgowan. BRIEF HISTORY: Please see the H and P that was done by hospitalist. In brief, she is a 81-year- old white female recently discharged from the hospital for metastatic pancreatic cancer with elevated CA-19-9 close to 46,000, undergoing chemotherapy by Dr. Mcgowan. Patient was admitted to the hospital with pancytopenia and gastrointestinal bleeding with abdominal pain. CT scan of the abdomen and pelvis showed colitis, and she is passing intermittent loose stools bloody in nature. HOSPITAL COURSE: 1. Pancytopenia. She was given hematological support. She was started on Granix and also blood transfusion. 2. The ANC was close to 1000 and she was maintained on IV Flagyl for colitis. Patient refusing colonoscopy. 3. Stool cultures were negative for C. difficile toxicity. 4. Pain control was given, IV Dilaudid. She was also given IV fluids and replaced the potassium as needed. Patient refusing for further chemotherapy and also further GI workup. LABORATORIES: CBC: White cell count 18, hematocrit 30, platelets 70,000. SMA7: Sodium 140, potassium 3.4, chloride 105, BUN 7, creatinine 0.6, glucose 177, calcium 7.9. The patient wants to go home with outpatient hospice care. DISCHARGE INSTRUCTIONS: 1. Outpatient hospital bed. 2. [facility]. 3. Coreg 12.5 p.o. b.i.d., losartan 25 daily, gabapentin 100 p.o. b.i.d., Levemir 15 units subcutaneous daily, Xarelto 20 mg daily, and will hold for few days until the gastrointestinal bleeding stops, Zofran for p.r.n. nausea, senna 1 tablet p.o. b.i.d., Prilosec 40 daily, Marinol 2.5 daily, and [place] 7.5 q.6 as needed for pain. 4. Initiate comfort care. 5. Advanced directives. Living will, Do Not Resuscitate. 6. Palliative hospice care through the [facility] meetings. cc: MD Claudio Rodriguez MD
== END 2016-12-27 11:38 | disposition hospice, home (50) ==
LOC: ED 02:17 → SUATTDRO 06:14 → 3N 06:14
PROVIDERS: ADMIT Internal Medicine; ATTEND Internal Medicine